=== PATIENT | female | born 1955 | race American Indian/Alaskan Native ===

== ENCOUNTER 2016-03-09 13:15 | Outpatient (CLI) | payer MEDICARE ==
--- NOTE | 2016-03-09 13:44 | Mammography Report ---
RIGHT DIGITAL DIAGNOSTIC MAMMOGRAM : 03/09/16 13:15:00 CLINICAL: Recalled for asymmetry. COMPARISON:02/14/16 screening FINDINGS: ML and spot compression CC views were performed. Satisfactory effacement of the previously described asymmetry on the spot views. The lateral view is negative. IMPRESSION: Negative Mammogram. BI-RADS CATEGORY: 1 -- Negative RECOMMENDATION: Routine mammographic screening in one year. ACR BI-RADS MAMMOGRAPHIC CODES: 0 = Needs additional imaging evaluation; 1 = Negative; 2 = Benign; 3 = Probably benign; 4 = Suspicious; 5 = Malignant; 6 = Known biopsy-proven malignancy COMMENT: 1. Dense breast tissue, i.e., adenosis, fibrocystic changes, etc., may obscure an underlying neoplasm. 2. Approximately 10% of cancers are not detected with mammography. 3. A negative mammography report should not delay biopsy if a clinically suspicious mass is present. COMMENT: Patient follow-up letters are generated via our [facility] application.
== END 2016-03-09 13:16 | disposition home or self-care (01) ==
LOC: SPVWC 13:15
PROVIDERS: ATTEND Internal Medicine Hematology & Oncology
DX: R92.8 Other abnormal and inconclusive findings on diagnostic imaging of breast (principal)
CPT/HCPCS: G0206-RT

== ENCOUNTER 2016-07-13 13:02 | Emergency (ER) | payer MEDICARE ==
--- NOTE | 2016-07-13 14:48 | Emergency Department Report ---
Entered by PHOEBE COATES, acting as scribe for MILLY REN PA. Chief Complaint: Extremity Injury, Lower Stated Complaint: PAIN IN LT LEG Time Seen by Provider: 07/13/16 14:04 - HPI History of Present Illness: Pt c/o severe left leg/calf pain. Pt states that the pain radiates from her left knee down posteriorly. Denies any injury/trauma to left leg. Denies numbness, tingling, or loss of feeling in left leg. Denies chest pain and SOB. PMHx of asthma, COPD, sicle cell disease, and HTN Pt states she is currently on blood thinners for previous PE. PSHx of left shoulder replacement in November 2015. Notes PE in left lung in 2016. Pt states she's not sure if it's a sickle cell flare-up. She is concerned about a possible blood clot. Notes she seen her PCP and her urine white blood cell count was elevated over 20k 2 weeks ago. - ROS Review of Systems: All systems are negative unless stated in the HPI above. - Exam Vital Signs: Vital Signs 07/13/16 13:13 Temperature 98.8 F Pulse Rate 95 H Respiratory 18 Rate Blood Pressure 144/80 O2 Sat by Pulse 95 Oximetry Physical Exam: General: 60 y/o female that is well nourished, well developed, nontoxic in appearance, and in no acute distress Cardiovascular: S1/S2 regular rate and rhythm Respiratory: Clear to auscultation bilaterally, no rhonchi, wheezes, or rales. Normal work of breathing. No use of accessory muscles Extremities: FROM. Mild lateral/posterior left leg tenderness. 2+ pulses present to bilateral extremities. MSE screening note: Focused history and physical exam performed. Due to findings the following was ordered: ED Medical Decision Making - Radiology Data Radiology results: pending - Medical Decision Making Patient was seen by provider in triage area. ED Disposition for MSE Condition: Stable This documentation as recorded by the scribe,PHOEBE COATES,accurately reflects the service I personally performed and the decisions made by me,MILLY REN PA.
[2016-07-13 16:29] LABS: Hematocrit 24.7 % (30.3-42.9); Hemoglobin 8.1 gm/dl (10.1-14.3); Mean Corpuscular HGB Conc 33 % (30-34); Mean Corpuscular Hemoglobin 26 pg (28-32); Mean Corpuscular Volume 81 fl (79-97); Platelet Count 336 K/mm3 (140-440); Red Blood Count 3.05 M/mm3 (3.65-5.03); Reticulocyte % 10.98 % (0.78-2.58)
[2016-07-13 16:35] LABS: Red Cell Distribution Width 21.8 % (13.2-15.2); White Blood Count 22.9 K/mm3 (4.5-11.0)
[2016-07-13 16:37] LABS: INR 1.5 (0.87-1.13)
[2016-07-13 16:38] LABS: Partial Thromboplastin Time 32.1 Sec. (24.2-36.6)
[2016-07-13 16:44] LABS: Anion Gap 18 mmol/L; Blood Urea Nitrogen 14 mg/dL (7-17); Carbon Dioxide 25 mmol/L (22-30); Chloride 101.3 mmol/L (98-107); Glucose 101 mg/dL (65-100); Potassium 3.8 mmol/L (3.6-5.0); Sodium 140 mmol/L (137-145)
[2016-07-13 19:44] LABS: Basophils % (Manual) 0 % (0.0-1.8); Blastocytes % (Manual) 0 %; Eosinophils % (Manual) 0 % (0.0-4.3)
[2016-07-13 19:45] LABS: Target Cells 2+
[2016-07-13 19:48] LABS: Polychromasia 1+; Schistocytes Rare; Stomatocytes 1+
[2016-07-13 19:49] LABS: Anisocytosis 1+; Hypochromasia 1+; Sickle Cells 1+
[2016-07-13 19:51] LABS: Platelet Clumps Few; Platelet Estimate Consistent w Auto
[2016-07-13 19:52] LABS: Diff Status Complete
[2016-07-13 22:12] VITALS: BP 143/71
--- NOTE | 2016-07-13 22:38 | Emergency Department Report ---
ED Lower Extremity HPI - General Chief Complaint: Extremity Injury, Lower Stated Complaint: PAIN IN LT LEG Time Seen by Provider: 07/13/16 22:25 Source: patient Mode of arrival: Ambulatory Limitations: No Limitations - History of Present Illness Initial Comments: Pt is a 60 yr old F with a history of sickle cell disease, HTN, DM, CHF, Asthma , COPD, and PE on coumadin who presents with L lower leg pain. Pt reports excruciating aching pain in the left leg, it is consistent with her sickle cell pain, but concern for blood clot. Pt reports she does take coumadin 2.5mg alternately with 5mg. She has not missed any doses. Takes oxycodone at home when needed for pain control. Otherwise no fevers, chills, PIERRE, N,V,D, SOB, CP, abd pain, trauma, travel, hemoptysis, falls, or sick contacts. - Related Data Home Medications Medication Instructions Recorded Confirmed Last Taken Amlodipine Besylate 5 mg PO DAILY 05/04/13 07/13/16 04/17/16 08:00 Folic Acid 1 mg PO DAILY 05/04/13 07/13/16 04/17/16 08:00 Hydroxyurea 500 mg PO BID 05/04/13 07/13/16 04/17/16 08:00 Oxycodone HCl/Acetaminophen 1 each PO DAILY PRN 05/04/13 07/13/16 04/17/16 08:00 [Oxycodone-Acetaminophen 5-325] Temazepam [Restoril] 15 mg PO HS PRN 05/04/13 07/13/16 04/15/16 22:00 Warfarin [Coumadin] 5 mg PO DAILY 07/13/16 07/13/16 Unknown traMADol [Ultram] 50 mg PO Q4HR PRN 07/13/16 07/13/16 Unknown Previous Rx's Medication Instructions Recorded Last Taken Type HYDROcodone/APAP 5-325 [Arnot 1 each PO Q6HR PRN #20 tablet 10/09/15 04/16/16 22 :00 Rx 5-325 mg TAB] ALBUTEROL Inhaler [ProAir HFA 2 puff IH QID PRN #30 inhalation 12/26/15 Rx Inhaler] 2 puffs Allergies Allergy/AdvReac Type Severity Reaction Status Date / Time levofloxacin [From Levaquin] Allergy Rash Verified 01/14/16 09:46 ED Review of Systems ROS: Stated complaint: PAIN IN LT LEG Other details as noted in HPI Comment: All other systems reviewed and negative ED Past Medical Hx - Past Medical History Previous Medical History?: Yes Hx Hypertension: Yes Hx Congestive Heart Failure: No Hx Diabetes: No Hx Sickle Cell Disease: Yes Hx Asthma: Yes Hx COPD: Yes Hx HIV: No - Surgical History Past Surgical History?: Yes Additional Surgical History: c-sec x 2. Port upper right chest. Rt Shoulder replacement 11/27/15 - Social History Smoking Status: Never Smoker Substance Use Type: None - Medications Home Medications: Home Medications Medication Instructions Recorded Confirmed Last Taken Type Amlodipine Besylate 5 mg PO DAILY 05/04/13 07/13/16 04/17/16 08:00 History Folic Acid 1 mg PO DAILY 05/04/13 07/13/16 04/17/16 08:00 History Hydroxyurea 500 mg PO BID 05/04/13 07/13/16 04/17/16 08:00 History Oxycodone HCl/Acetaminophen 1 each PO DAILY PRN 05/04/13 07/13/16 04/17/16 08: 00 History [Oxycodone-Acetaminophen 5-325] Temazepam [Restoril] 15 mg PO HS PRN 05/04/13 07/13/16 04/15/16 22:00 History HYDROcodone/APAP 5-325 [Arnot 1 each PO Q6HR PRN #20 tablet 10/09/15 07/13/16 22:00 Rx 5-325 mg TAB] ALBUTEROL Inhaler [ProAir HFA 2 puff IH QID PRN #30 inhalation 12/26/1501/07/16 Rx Inhaler] 2 puffs Warfarin [Coumadin] 5 mg PO DAILY 07/13/16 07/13/16 Unknown History traMADol [Ultram] 50 mg PO Q4HR PRN 07/13/16 07/13/16 Unknown History ED Physical Exam - General Limitations: No Limitations General appearance: alert, in no apparent distress - Head Head exam: Present: atraumatic, normocephalic - Eye Eye exam: Present: normal appearance - ENT ENT exam: Present: mucous membranes moist - Neck Neck exam: Present: normal inspection - Respiratory Respiratory exam: Present: normal lung sounds bilaterally. Absent: respiratory distress - Cardiovascular Cardiovascular Exam: Present: regular rate, normal rhythm. Absent: systolic murmur, diastolic murmur, rubs, gallop - GI/Abdominal GI/Abdominal exam: Present: soft, normal bowel sounds - Extremities Exam Extremities exam: Present: normal inspection, full ROM, normal capillary refill , calf tenderness (left calf tenderness), other (no warmth, no erythema). Absent: pedal edema, joint swelling - Back Exam Back exam: Present: normal inspection - Neurological Exam Neurological exam: Present: alert, oriented X3 - Psychiatric Psychiatric exam: Present: normal affect, normal mood - Skin Skin exam: Present: warm, dry, intact, normal color. Absent: rash ED Course Vital Signs 07/13/16 07/13/16 13:13 22:11 Temperature 98.8 F Pulse Rate 95 H 95 H Respiratory 18 18 Rate Blood Pressure 144/80 Blood Pressure 143/71 [Left] O2 Sat by Pulse 95 100 Oximetry ED Lower Extremity MDM - Lab Data Result diagrams: 07/13/16 16:11 07/13/16 16:11 - Radiology Data Radiology results: report reviewed LE VENOUS: NO evidence of clot - Medical Decision Making Results discussed with patient. I did instruct patient to have doppler repeated within the week if her pain persists. Pt's INR is 1.5, subtherapeutic in range. Will give lovenox here in the ED prior to discharge, and instructed the patient to take coumadin 5mg tonight as opposed to her 2.5 dose tonight and to resume her normal schedule as if she took 2.5mg tonight. Pt to repeat INR in two days. Critical care attestation.: If time is entered above; I have spent that time in minutes in the direct care of this critically ill patient, excluding procedure time. ED Disposition Clinical Impression: Leg pain, left, Sickle cell anemia with pain Disposition: DISCHARGED TO HOME OR SELFCARE Is pt being admited?: No Condition: Stable Additional Instructions: PLEASE TAKE 5MG COUMADIN TONIGHT INSTEAD OF 2.5MG THEN TOMORROW START BACK UP WITH 5MG ALTERNATING WITH YOUR 2.5MG DOSE THE FOLLOWING DAY REPEAT INR IN 2 DAYS Referrals: DAVID MAIN DO [Primary Care Provider] - 3-5 Days
[2016-07-13] MEDS ORDERED: LOVENOX SUB-Q ONE (22:50)
[2016-07-13] MEDS ORDERED: MOTRIN PO ONE ×3 (22:51→22:58)
--- NOTE | 2016-07-14 08:20 | Vascular Lab Report ---
Left Lower Extremity Venous Duplex Study: Reason for Exam: Pain of the left lower extremity. Comments on the Right: A limited duplex study was done of the proximal veins of the right lower extremity. All veins visualized are freely compressible without evidence of internal echogenicity. Flow is spontaneous and phasic throughout. No evidence of acute or chronic thrombus is seen in any of the vessels visualized. Comments on the Left: All veins visualized are freely compressible without evidence of internal echogenicity. Flow is spontaneous and phasic throughout. No evidence of acute or chronic thrombus is seen in any of the vessels visualized. Impression: No evidence of acute or chronic deep venous thrombosis in the left lower extremity.
[2016-07-14] MEDS ORDERED: LOVENOX SUB-Q SCH (10:00)
== END 2016-07-13 22:59 | disposition home or self-care (01) ==
LOC: ED 13:02
DX: D57.1 Sickle-cell disease without crisis (principal); I10 Essential (primary) hypertension; J45.909 Unspecified asthma, uncomplicated; J44.9 Chronic obstructive pulmonary disease, unspecified
CPT/HCPCS: 36415; 80048; 82550; 85007; 85025; 85045; 85610; 85730; 93971; 96372; 99284; J1650

== ENCOUNTER 2017-03-01 10:28 | Outpatient (CLI) | payer MEDICARE ==
--- NOTE | 2017-03-01 10:55 | Mammography Report ---
BILATERAL MAMMOGRAM: FINDINGS: The breast tissue is heterogeneously dense, which could obscure detection of small masses (approximately 50%-75% glandular). No mass, distortion, suspicious calcification, or skin change is seen. No interval change when compared to prior exam in May 2014. Right breast port for sickle cell disease. CAD was utilized. IMPRESSION: Negative mammogram. There is no mammographic evidence of malignancy. RECOMMENDATION: Follow-up per ACS guidelines. BI-RADS CATEGORY: 1 = Negative ACR BI-RADS MAMMOGRAPHIC CODES: 0 = Needs additional imaging evaluation; 1 = Negative; 2 = Benign; 3 = Probably benign; 4 = Suspicious; 5 = Malignant; 6 = Known biopsy-proven malignancy COMMENT: 1. Dense breast tissue, i.e., adenosis, fibrocystic changes, etc., may obscure an underlying neoplasm. 2. Approximately 10% of cancers are not detected with mammography. 3. A negative mammography report should not delay biopsy if a clinically suspicious mass is present. COMMENT: Patient follow-up letters are generated in [employer].
== END 2017-03-01 10:29 | disposition home or self-care (01) ==
LOC: SPVWC 10:28
PROVIDERS: ATTEND Internal Medicine Hematology & Oncology
DX: Z12.31 Encounter for screening mammogram for malignant neoplasm of breast (principal); I10 Essential (primary) hypertension; J44.9 Chronic obstructive pulmonary disease, unspecified; J45.909 Unspecified asthma, uncomplicated; J18.9 Pneumonia, unspecified organism
CPT/HCPCS: 77067

== ENCOUNTER 2019-10-12 09:33 | Outpatient (CLI) | payer MEDICARE ==
--- NOTE | 2019-10-12 10:29 | Mammography Report ---
DIGITAL SCREENING MAMMOGRAM WITH CAD, 10/12/2019 INDICATION: Routine screening mammography. TECHNIQUE: Digital bilateral 2D mammography was obtained in the craniocaudal and mediolateral obliq ue projections. This examination was interpreted with the benefit of Computer-Aided Detection analysi s. COMPARISON: 03/01/2017, 03/09/2016, 02/14/2016 FINDINGS: Breast Density: The breasts are heterogeneously dense, which may obscure small masses. There is no evidence of dominant mass, suspicious calcifications or architectural distortion in eithe r breast. IMPRESSION: Follow up recommendation: Routine yearly BI-RADS Category 1: Negative. A "normal" or negative report should not discourage follow up or biopsy of a clinically significant f inding. A written summary of these findings will be mailed to the patient. The patient will be entered into a mammography reporting system which will generate a reminder letter for the patient's next appointmen t at the appropriate interval. The [employer] recommends yearly mammograms starting at age 40 and continuing as l vaishali as a woman is in good health. Breast MRI is recommended for women with an approximate 20-25% or greater lifetime risk of breast cancer, including women with a strong family history of breast or ova charisma cancer or who have been treated for Hodgkin's disease. Signer Name: Krishan Maria MD Signed: 10/12/2019 10:25 AM Workstation Name: [id number]
== END 2019-10-12 09:34 | disposition home or self-care (01) ==
LOC: SPVWC 09:33
PROVIDERS: ATTEND Internal Medicine Hematology & Oncology
DX: Z12.31 Encounter for screening mammogram for malignant neoplasm of breast (principal)
CPT/HCPCS: 77067

== ENCOUNTER 2021-04-09 12:44 | Outpatient (CLI) | payer MEDICARE ==
--- NOTE | 2021-04-10 09:34 | Mammography Report ---
DIGITAL SCREENING MAMMOGRAM WITH CAD, 04/09/2021 CLINICAL INFORMATION / INDICATION: Routine screening TECHNIQUE: Digital bilateral 2D mammography was obtained in the craniocaudal and mediolateral obliqu e projections. This examination was interpreted with the benefit of Computer-Aided Detection analysis . COMPARISON: 10/12/2019 FINDINGS: Breast Density: The breasts are heterogeneously dense, which may obscure small masses. No dominant mass, suspicious calcifications, or architectural distortion in either breast. Right Port-A-Cath is seen. Lateral calcifications are stable. IMPRESSION: No mammographic evidence of malignancy. Follow up recommendation: Routine yearly BI-RADS Category 2: BENIGN. A "normal" or negative report should not discourage follow up or biopsy of a clinically significant f inding. A written summary of these findings will be mailed to the patient. The patient will be entered into a mammography reporting system which will generate a reminder letter for the patient's next appointmen t at the appropriate interval. The [employer] recommends yearly mammograms starting at age 40 and continuing as l vaishali as a woman is in good health. Breast MRI is recommended for women with an approximate 20-25% or greater lifetime risk of breast cancer, including women with a strong family history of breast or ova charisma cancer or who have been treated for Hodgkin's disease. Signer Name: Luc Morin MD Signed: 04/10/2021 9:29 AM Workstation Name: [id number]
== END 2021-04-09 12:45 | disposition home or self-care (01) ==
LOC: SPVWC 12:44
PROVIDERS: ATTEND Internal Medicine Hematology & Oncology
DX: Z12.31 Encounter for screening mammogram for malignant neoplasm of breast (principal); N64.89 Other specified disorders of breast
CPT/HCPCS: 77067

== ENCOUNTER 2021-07-15 13:21 | Outpatient (CLI) | payer MEDICARE ==
--- NOTE | 2021-07-15 16:30 | Mammography Report ---
DEXA BONE DENSITY SCAN INDICATION / CLINICAL INFORMATION: M85.80 OTHER SPECIFIED DISORDERS OF BONE DENSITY. 65 years Female COMPARISON: None available. LUMBAR SPINE, L1-L4: - Bone mineral density (BMD) = 0.952 g/cm2. - T-score = -1.8 - Change (%) since most recent prior (if available): None available. LEFT HIP, TOTAL : - Bone mineral density (BMD) = 0.933 g/cm2. - T-score = -0.6 - Change (%) since most recent prior (if available): None available. IMPRESSION: 1. WHO Classification: Osteopenia. Fracture Risk: Increased. 2. 10-Year Fracture Risk (FRAX) = Major Osteoporotic Not reported.% / Hip: Not reported.% Note: 10-Year Fracture Risk (FRAX) not reported. This DEXA unit lacks FRAX functionality. BMD Reporting Guidelines (ISCD, 2015) BMD Reporting in Postmenopausal Women and in Men Age 50 and Older - T-scores are preferred. - The WHO densitometric classification is applicable. BMD Reporting in Females Prior to Menopause and in Males Younger Than Age 50 - Z-scores, not T-scores, are preferred. This is particularly important in children. - A Z-score of -2.0 or lower is defined as below the expected range for age, and a Z-score above -2.0 is within the expected range for age. - Osteoporosis cannot be diagnosed in men under age 50 on the basis of BMD alone. - The WHO diagnostic criteria may be applied to women in the menopausal transition. http://www.iscd.org/official-positions/6784-iqru-pstqeszl-positions-adult/ Signer Name: Jorgito Chong MD Signed: 07/15/2021 4:25 PM Workstation Name: [id number]
== END 2021-07-15 13:22 | disposition home or self-care (01) ==
LOC: SPVWC 13:21
PROVIDERS: ATTEND Internal Medicine Hematology & Oncology
DX: M85.88 Other specified disorders of bone density and structure, other site (principal); M85.80 Other specified disorders of bone density and structure, unspecified site; M85.89 Other specified disorders of bone density and structure, multiple sites
CPT/HCPCS: 77080

== ENCOUNTER 2021-07-31 07:18 | Outpatient (CLI) | payer MEDICARE ==
--- NOTE | 2021-07-31 09:26 | Magnetic Resonance Report ---
MRI ABDOMEN WITHOUT CONTRAST INDICATION / CLINICAL INFORMATION: R16.0 E83.19, SICKLE CELL DISEASE, ABD/LIVER PAIN. TECHNIQUE: Multiplanar, multisequence series were obtained through the abdomen. COMPARISON: Ultrasound abdomen 02/06/2018 FINDINGS: LIVER: The liver is mildly enlarged with the right hepatic lobe measuring 17 cm in length in the aleica nal plane. There is diffuse decreased signal throughout the liver on T2 imaging and gradient imaging consistent with diffuse iron deposition. No focal liver mass is detected. No cirrhotic changes are ap preciated. GALLBLADDER: There are numerous small gallstones in the gallbladder. No evidence for abnormal dilatat ion, wall thickening or pericholecystic fluid. BILE DUCTS: No significant abnormality. The CBD measures 4 mm. No evidence for choledocholithiasis al though MRCP was not performed. PANCREAS: No significant abnormality. SPLEEN: The spleen is small in size measuring 3.9 cm in length and demonstrates diffuse calcification or iron deposition. ADRENALS: No significant abnormality. RIGHT KIDNEY AND URETER: No significant abnormality. LEFT KIDNEY AND URETER: No significant abnormality. STOMACH AND VISUALIZED BOWEL: No significant abnormality. PERITONEUM: No free fluid. No free air. No fluid collection. LYMPH NODES: No significant adenopathy. AORTA and ARTERIES: No significant abnormality. IVC and VEINS: No significant abnormality. ADDITIONAL FINDINGS: None. SKELETAL SYSTEM: No acute injury or suspicious bony lesion. Mild diffuse iron deposition is noted in the visualized bony structures. IMPRESSION: No acute inflammatory process. Mild hepatomegaly with diffuse iron deposition throughout the liver. No hepatic mass or cirrhotic nidia nges are appreciated. Atrophic spleen. Cholelithiasis but no evidence for acute cholecystitis or choledocholithiasis. Signer Name: Jake Espinoza Jr, MD Signed: 07/31/2021 9:22 AM Workstation Name: [id number]
== END 2021-07-31 07:19 | disposition home or self-care (01) ==
LOC: MRI 07:18
PROVIDERS: ATTEND Internal Medicine Hematology & Oncology
DX: R16.0 Hepatomegaly, not elsewhere classified (principal); K80.80 Other cholelithiasis without obstruction; D57.1 Sickle-cell disease without crisis; R10.9 Unspecified abdominal pain
CPT/HCPCS: 74181